=== PATIENT | female | born 1950 | race Caucasian/White ===

== ENCOUNTER 2017-10-26 08:35 | Emergency (ER) | payer OTHER, BC ==
--- NOTE | 2017-10-26 08:56 | EDPHY ---
H & P Stated Complaint: moving/painting - c/ort Shoulder/back and chest pain Time Seen by Provider: 10/26/17 08:39 HPI/ROS: Chief Complaint: Right-sided back pain HPI: Healthy 67-year-old woman with no significant medical problems began having pain behind and below her right shoulder blade and up into her neck last night. Pain got progressively worse over the course of the evening. She did take 2 Advil and half an Ambien before going to bed last night. She woke up with persistent pain. She does state that she has been painting her residence but has been doing this over the course last couple weeks. She did move some furniture yesterday as well but she says nothing to strenuous. No substernal chest pain. No shortness of breath. No cough. No leg pain or swelling. No recent travel or periods of immobility. She does hike quite frequently. No family history of coronary artery disease or blood clotting disorders. Does not take hormone replacement. She states that worst the pain is 6/10. At best is a 4/10. ROS: 10 point Review of Systems is negative except as noted in the HPI. PMH: Denies Social History: No smoking, rare alcohol, no recreational drug use Family History: non-contributory Physical Exam: Gen: Awake, Alert, No Distress HEENT: Nose: no rhinorrhea Eyes: PERRLA, EOMI Mouth: Moist mucosa Neck: Supple, no JVD Chest: nontender, lungs clear to auscultation Heart: S1, S2 normal, no murmur Abd: Soft, non-tender, no guarding Back: no CVA tenderness, no midline tenderness Ext: no edema, non-tender Skin: no rash Neuro: CN II-XII intact, Sensation grossly intact, Strength 5/5 in bilateral upper and lower extremities - Personal History Current Tetanus Diphtheria and Acellular Pertussis (TDAP): Yes - Medical/Surgical History Other PMH: Ovarian - Social History Smoking Status: Never smoked Constitutional: Initial Vital Signs Temperature (C) 36.6 C 10/26/17 08:44 Heart Rate 79 10/26/17 08:44 Respiratory Rate 18 10/26/17 08:44 Blood Pressure 167/87 H 10/26/17 08:44 O2 Sat (%) 97 10/26/17 08:44 O2 Delivery Mode Room Air Allergies/Adverse Reactions: No Known Allergies Allergy (Unverified 10/26/17 08:43) Home Medications: Medication Instructions Recorded NK [No Known Home Meds] 10/26/17 Medical Decision Making - Diagnostics EKG Interpretation: ECG time 9:00 a.m., sinus rhythm with a rate of 72, left axis deviation, normal intervals, no acute ST or T-wave changes. Impression: Normal ECG. Imaging Results: Imaging Impressions Chest X-Ray 10/26/17 09:28 Impression: 1. Pulmonary hypertension of unknown chronicity. If there are any old outside chest x-rays, we would be happy to review them to assess for interval change. 2. COPD/emphysema. 3. Likely biapical scarring. Results called and discussed with Roc Baez MD, at the [facility] [place], 10/26/2017 10: 18 ED Course/Re-evaluation: 67-year-old with pleuritic right back pain since last night. She has been lifting and painting and sounds likely musculoskeletal. Does not have risk factors for PE. Will order a D-dimer ECG and further blood work and chest x- ray. D-dimer is 0.55. Given age adjustment with a normal is 0.67 this is reassuring. There is some evidence on chest x-ray however of pulmonary hypertension which raises the concern for possible PE. I have discussed this at length with the patient. Given the abnormality in the chest x-ray even with a normal age adjusted D-dimer she refer to proceed with CT scanning to rule out PE. I feel that this is appropriate. CT scan is been ordered. Renal function is appropriate. CT scan of chest noted. Patient has a 20 year smoking history but quit in her 30s. Was told at that time she has some mild early emphysema. Will refer her for follow up with pulmonology and primary care. Regarding her back pain I think this is all musculoskeletal from her lifting and painting. She is improved after Toradol here. Will continue [id number] analgesics. - Data Points Laboratory Results: Laboratory Results 10/26/17 09:04 10/26/17 09:04 10/26/17 10/26/17 10/26/17 09:04 09:04 09:04 WBC 8.77 10^3/uL 10^3/uL (3.80-9.50) RBC 4.50 10^6/uL 10^6/uL (4.18-5.33) Hgb 13.6 g/dL g/dL (12.6-16.3) Hct 40.0 % % (38.0-47.0) MCV 88.9 fL fL (81.5-99.8) MCH 30.2 pg pg (27.9-34.1) MCHC 34.0 g/dL g/dL (32.4-36.7) RDW 13.0 % % (11.5-15.2) Plt Count 208 10^3/uL 10^3/uL (150-400) MPV 9.6 fL fL (8.7-11.7) Neut % (Auto) 76.9 % H % (39.3-74.2) Lymph % (Auto) 11.1 % L % (15.0-45.0) [place] % (Auto) 10.8 % % (4.5-13.0) Eos % (Auto) 0.5 % L % (0.6-7.6) Baso % (Auto) 0.5 % % (0.3-1.7) Nucleat RBC Rel Count 0.0 % % (0.0-0.2) Absolute Neuts (auto) 6.75 10^3/uL H 10^3/uL (1.70-6.50) Absolute Lymphs (auto) 0.97 10^3/uL L 10^3/uL (1.00-3.00) Absolute Monos (auto) 0.95 10^3/uL H 10^3/uL (0.30-0.80) Absolute Eos (auto) 0.04 10^3/uL 10^3/uL (0.03-0.40) Absolute Basos (auto) 0.04 10^3/uL 10^3/uL (0.02-0.10) Absolute Nucleated RBC 0.00 10^3/uL 10^3/uL (0-0.01) Immature Gran % 0.2 % % (0.0-1.1) Immature Gran # 0.02 10^3/uL 10^3/uL (0.00-0.10) D-Dimer 0.55 ug/mLFEU H ug/mLFEU (0.00-0.50) Sodium 137 mEq/L mEq/L (135-145) Potassium 4.1 mEq/L mEq/L (3.5-5.2) Chloride 102 mEq/L mEq/L (97-110) Carbon Dioxide 28 mEq/l mEq/l (22-31) Anion Gap 7 mEq/L L mEq/L (8-16) BUN 17 mg/dL mg/dL (7-23) Creatinine 0.8 mg/dL mg/dL (0.6-1.0) Estimated GFR > 60 Glucose 95 mg/dL mg/dL (70-100) Calcium 9.6 mg/dL mg/dL (8.5-10.4) Troponin I < 0.012 ng/mL ng/mL (0.000-0.034) Medications Given: Discontinued Medications Ketorolac Tromethamine (Toradol) 15 mg IVP EDNOW ONE Stop: 10/26/17 10:03 Last Admin: 10/26/17 10:15 Dose: 15 mg Departure - Departure Disposition: Home, Routine, Self-Care Clinical Impression: Thoracic back pain, Emphysema of lung Condition: Good Instructions: Back Pain (ED), Emphysema (ED) Additional Instructions: Follow up with primary care and pulmonology in about a week. Alternate acetaminophen (1000 mg) with ibuprofen (400 mg) every 4 hours as needed for pain. Return to the emergency department for increasing pain, shortness of breath, lightheadedness, fainting, or any other concerns. Referrals: Andrew Diaz MD [[facility] [place] - As per Instructions Corey Serra MD [Medical Doctor] - As per Instructions
--- NOTE | 2017-10-26 09:02 | CPEKG ---
Heart Rate: 72 RR Interval: 833 P-R Interval: 172 QRSD Interval: 94 QT Interval: 408 QTC Interval: 447 P [place]: 83 QRS [place]: -48 T Wave [place]: 62 EKG Severity - OTHERWISE NORMAL ECG - EKG Impression: SINUS RHYTHM EKG Impression: LEFT AXIS DEVIATION Electronically Signed By: Roc Baez 26-Oct-2017 11:55:17
[2017-10-26 09:12] LABS: PLATELET COUNT 208 10^3/uL (150-400)
[2017-10-26] MEDS ORDERED: KETOROLAC 15 MG/1 ML SDV IVP ONE (10:02)
[2017-10-26] MEDS ORDERED: IOPAMIDOL (ISOVUE 370) 100 ML BTL IV ONE (10:56)
[2017-10-26 11:51] VITALS: BP 124/76
== END 2017-10-26 11:50 | disposition home or self-care (01) ==
LOC: CED 08:35
DX: M54.6 Pain in thoracic spine (principal); J43.9 Emphysema, unspecified
CPT/HCPCS: 71046; 71275; 93005; 96374; 99285; J1885; Q9967; 80048-PO; 84484-PO; 85025-PO; 85378-PO

== ENCOUNTER → 2018-04-17 | Outpatient (CLI) | payer OTHER, BC | LOC: BHFA 10:45 | PROVIDERS: ATTEND Internal Medicine Cardiovascular Disease | DX: R07.9 Chest pain, unspecified (principal) ==